=== PATIENT | female | born 1935 | race African-American/Black ===

== ENCOUNTER 2022-04-05 04:15 | Inpatient (IN) | payer MEDICARE, MEDICAID ==
[~2022-04-05] VITALS: Ht 162.6 cm; Wt 48.1 kg
[2022-04-05] MEDS ORDERED: MORPHINE SULFATE 2 MG/ML CPJ (NOT FOR IM USE) IV ONE (05:15)
[2022-04-05 06:46] LABS: CHLORIDE 104 mEq/L (98-107); HEMATOCRIT. 34.7 % (36.0-48.0); HEMOGLOBIN. 11.5 g/dL (12.0-16.0); MEAN CORPUSCULAR HEMOGLOBIN 30.4 pg (28.0-32.0); MEAN CORPUSCULAR VOLUME 91.6 fL (81.0-99.0); MEAN PLATELET VOLUME 7.1 fl (7.4-10.4); PLATELET 258 x1000/uL (130-400); RED BLOOD CELL COUNT 3.79 mill/uL (4.2-5.4); RED CELL DISTRIBUTION WIDTH 13.4 % (11.6-14.6)
[2022-04-05 07:02] LABS: CREATINE KINASE 89 IU/L (26-192)
[2022-04-05 08:06] LABS: PLATELET ESTIMATE NORMAL
[2022-04-05] MEDS ORDERED: ONDANSETRON HCL 4MG/2ML INJ IV PRN (15:45)
[2022-04-05] MEDS ORDERED: TRAMADOL 50MG TABLET PO PRN (15:45)
[2022-04-05] MEDS ORDERED: MAGNESIUM/ALUMINUM HYDROXIDE/SIMETHICONE 30ML UDC PO PRN (15:45)
[2022-04-05] MEDS ORDERED: GUAIFENESIN 200MG/10ML SUGAR FREE UDC PO PRN (15:45)
[2022-04-05] MEDS ORDERED: DOCUSATE SODIUM 100MG CAPSULE PO PRN (15:45)
[2022-04-05 16:00] VITALS: BP 142/62
[2022-04-05] MEDS ORDERED: NALOXONE HCL 0.4MG/ML VIAL IV PRN (16:15)
[2022-04-05] MEDS: ENOXAPARIN 30MG/0.3ML SYR SUBCUT SCH (18:37)
[2022-04-05 20:21] VITALS: BP 145/59
[2022-04-06] VITALS: BP 152/73
[2022-04-06] MEDS: ACETAMINOPHEN 325MG TABLET PO PRN (00:35)
[2022-04-06 04:00] VITALS: BP 132/69
[2022-04-06 08:00] VITALS: BP 152/73
[2022-04-06 08:45] LABS: BASOPHILS % 0.2 % (0.0-2.0); EOSINOPHILS % 0.2 % (0.0-5.0); HEMATOCRIT. 30.8 % (36.0-48.0); HEMOGLOBIN. 10.4 g/dL (12.0-16.0); LYMPHOCYTES % 7.1 % (20.0-50.0); MEAN CORPUSCULAR HEMOGLOBIN 30.5 pg (28.0-32.0); MEAN CORPUSCULAR VOLUME 90.7 fL (81.0-99.0); MEAN PLATELET VOLUME 7.5 fl (7.4-10.4); MONOCYTES % 9.4 % (2.0-8.0); NEUTROPHILS % 83.1 % (40.0-76.0); PLATELET 232 x1000/uL (130-400); RED BLOOD CELL COUNT 3.39 mill/uL (4.2-5.4)
[2022-04-06] MEDS: AMLODIPINE 10MG TABLET PO SCH (10:21)
[2022-04-06 12:00] VITALS: BP 158/71
[2022-04-06 16:00] VITALS: BP 123/52
[2022-04-06 16:13] LABS: CHLORIDE 104 mEq/L (98-107)
[2022-04-06 16:21] LABS: HDL CHOLESTEROL 76 mg/dL (40-59); LDL CHOLESTEROL 89 mg/dL (5-100)
[2022-04-06] MEDS: ENOXAPARIN 30MG/0.3ML SYR SUBCUT SCH (17:32)
[2022-04-06 20:00] VITALS: BP 120/76
[2022-04-07] VITALS (7 sets, daily range): BP systolic 101–129; BP diastolic 58–83
[2022-04-07] MEDS: AMLODIPINE 10MG TABLET PO SCH (08:27)
[2022-04-07] MEDS: ACETAMINOPHEN 325MG TABLET PO PRN (08:27)
[2022-04-07 08:38] LABS: CHLORIDE 101 mEq/L (98-107)
[2022-04-07 08:49] LABS: HDL CHOLESTEROL 73 mg/dL (40-59); LDL CHOLESTEROL 79 mg/dL (5-100)
[2022-04-07] MEDS: ENOXAPARIN 30MG/0.3ML SYR SUBCUT SCH (17:23)
[2022-04-07] MEDS: METOPROLOL TARTRATE 50MG TABLET PO SCH ×2 (21:00→23:21)
[2022-04-08] VITALS: BP 110/70
[2022-04-08 04:00] VITALS: BP 124/67
[2022-04-08 08:00] VITALS: BP 110/70
[2022-04-08] MEDS: METOPROLOL TARTRATE 50MG TABLET PO SCH ×2 (09:24→21:57)
[2022-04-08] MEDS: AMLODIPINE 10MG TABLET PO SCH (09:24)
[2022-04-08 12:00] VITALS: BP 112/58
[2022-04-08 16:00] VITALS: BP 108/48
[2022-04-08] MEDS: ENOXAPARIN 30MG/0.3ML SYR SUBCUT SCH (16:38)
[2022-04-08 20:00] VITALS: BP 145/64
[2022-04-09] VITALS: BP 107/56
[2022-04-09 04:00] VITALS: BP_SYST 103; BP_SYST 116; BP_DIAS 53; BP_DIAS 62
[2022-04-09 07:29] LABS: HEMATOCRIT 29.2 % (36.0-48.0); HEMOGLOBIN 9.8 g/dL (12.0-16.0); MEAN CORPUSCULAR HEMOGLOBIN 30.6 pg (28.0-32.0); MEAN CORPUSCULAR VOLUME 90.8 fL (81.0-99.0); PLATELET 328 x1000/uL (130-400); RED BLOOD CELL COUNT 3.22 mill/uL (4.2-5.4); RED CELL DISTRIBUTION WIDTH 12.7 % (11.6-14.6)
[2022-04-09 08:00] VITALS: BP 109/65
[2022-04-09] MEDS: METOPROLOL TARTRATE 50MG TABLET PO SCH ×2 (09:00→21:00)
[2022-04-09] MEDS: AMLODIPINE 10MG TABLET PO SCH (09:37)
[2022-04-09] MEDS ORDERED: KETOROLAC 30MG/ML VIAL ONE (10:33)
[2022-04-09] MEDS ORDERED: MORPHINE SULFATE/PF 1MG/ML 10ML AMP ONE (10:33)
[2022-04-09] MEDS ORDERED: EPINEPHRINE 1:1000 1 MG/ML AMP ONE (10:34)
[2022-04-09] MEDS ORDERED: VANCOMYCIN HCL 1 GM/VIAL ONE (10:36)
[2022-04-09] MEDS ORDERED: LIDOCAINE HCL 1%/EPI 1:200,000 30 ML VIAL ONE ×2 (10:36)
[2022-04-09 12:00] VITALS: BP 109/60
[2022-04-09] MEDS ORDERED: SUCCINYLCHOLINE CHLORIDE 200MG/10ML IV ONE (12:11)
[2022-04-09] MEDS ORDERED: PROPOFOL 200MG/20ML VIAL IV ONE (12:12)
[2022-04-09] MEDS ORDERED: PHENYLEPHRINE HCL 10 MG/ML 1ML (IV VIAL) IV ONE (12:12)
[2022-04-09] MEDS ORDERED: LIDOCAINE HCL 1% 10 MG/ML 10ML VIAL ONE (12:12)
[2022-04-09] MEDS ORDERED: FENTANYL CITRATE/PF 50MCG/ML 2ML VIAL ONE (12:12)
[2022-04-09] MEDS ORDERED: TRANEXAMIC ACID 1,000 MG in SODIUM CHLORIDE 0.9% 100 ML IV NR ×4 (13:30)
[2022-04-09] MEDS ORDERED: SKIN ADHESIVE 0.7 GM EA TOP ONE (14:11)
[2022-04-09] MEDS ORDERED: ONDANSETRON HCL 4MG/2ML INJ IV PRN (14:45)
[2022-04-09] MEDS ORDERED: HYDROMORPHONE HCL/PF 2MG/ML CPJ IV PRN (14:45)
[2022-04-09] MEDS: CEFAZOLIN 1000MG PREMIX 50 ML IV NR ×2 (15:30→18:19)
[2022-04-09 16:00] VITALS: BP 116/62
[2022-04-09 16:46] LABS: TOTAL IRON BINDING CAPACITY 192 ug/dL (250-450)
[2022-04-09 17:29] LABS: CHLORIDE 103 mEq/L (98-107)
[2022-04-09] MEDS: ENOXAPARIN 30MG/0.3ML SYR SUBCUT SCH (18:20)
[2022-04-09 20:00] VITALS: BP 97/50
[2022-04-10] VITALS: BP 102/59
[2022-04-10] MEDS: CEFAZOLIN 1000MG PREMIX 50 ML IV SCH ×3 (00:49→17:29)
[2022-04-10 04:00] VITALS: BP 105/55
[2022-04-10 07:19] LABS: BASOPHILS % 0.1 % (0.0-2.0); HEMATOCRIT. 26.7 % (36.0-48.0); HEMOGLOBIN. 8.9 g/dL (12.0-16.0); LYMPHOCYTES % 8.3 % (20.0-50.0); MEAN CORPUSCULAR HEMOGLOBIN 30.4 pg (28.0-32.0); MEAN CORPUSCULAR VOLUME 91.5 fL (81.0-99.0); MEAN PLATELET VOLUME 7.7 fl (7.4-10.4); MONOCYTES % 11.9 % (2.0-8.0); NEUTROPHILS % 79.7 % (40.0-76.0); PLATELET 390 x1000/uL (130-400); RED BLOOD CELL COUNT 2.92 mill/uL (4.2-5.4); RED CELL DISTRIBUTION WIDTH 13.2 % (11.6-14.6)
[2022-04-10 08:00] VITALS: BP 126/54
[2022-04-10] MEDS: METOPROLOL TARTRATE 50MG TABLET PO SCH ×2 (08:40→21:00)
[2022-04-10] MEDS: AMLODIPINE 10MG TABLET PO SCH (08:40)
[2022-04-10 12:00] VITALS: BP 99/46
[2022-04-10] MEDS: FERROUS SULFATE 325MG TABLET PO SCH ×2 (13:02→16:59)
[2022-04-10] MEDS ORDERED: SODIUM CHLORIDE 0.9% 500 ML IV NR (15:45)
[2022-04-10 16:00] VITALS: BP 95/41
[2022-04-10] MEDS: ENOXAPARIN 30MG/0.3ML SYR SUBCUT SCH (17:00)
[2022-04-10 20:00] VITALS: BP 109/54
[2022-04-11] VITALS: BP 104/44
[2022-04-11] MEDS: CEFAZOLIN 1000MG PREMIX 50 ML IV SCH (01:53)
[2022-04-11] MEDS: ACETAMINOPHEN 325MG TABLET PO PRN (01:58)
[2022-04-11 04:00] VITALS: BP 112/53
[2022-04-11 07:48] LABS: BASOPHILS % 0.2 % (0.0-2.0); EOSINOPHILS % 0.5 % (0.0-5.0); HEMATOCRIT. 22.4 % (36.0-48.0); HEMOGLOBIN. 7.7 g/dL (12.0-16.0); MEAN CORPUSCULAR HEMOGLOBIN 31.1 pg (28.0-32.0); MEAN CORPUSCULAR VOLUME 90.6 fL (81.0-99.0); MEAN PLATELET VOLUME 7.5 fl (7.4-10.4); MONOCYTES % 11.5 % (2.0-8.0); NEUTROPHILS % 71.8 % (40.0-76.0); PLATELET 380 x1000/uL (130-400); RED BLOOD CELL COUNT 2.48 mill/uL (4.2-5.4); RED CELL DISTRIBUTION WIDTH 13.2 % (11.6-14.6)
[2022-04-11 08:00] VITALS: BP 118/61
[2022-04-11] MEDS: AMLODIPINE 10MG TABLET PO SCH (10:21)
[2022-04-11] MEDS: FERROUS SULFATE 325MG TABLET PO SCH (10:21)
[2022-04-11] MEDS: METOPROLOL TARTRATE 50MG TABLET PO SCH ×2 (10:22→20:50)
[2022-04-11 12:00] VITALS: BP 118/48
[2022-04-11 16:00] VITALS: BP 101/43
[2022-04-11 20:00] VITALS: BP 102/55
[2022-04-12] VITALS: BP 108/56
[2022-04-12 03:39] LABS: CHLORIDE 106 mEq/L (98-107)
[2022-04-12 04:00] VITALS: BP 110/60
[2022-04-12 07:10] LABS: BASOPHILS % 0.4 % (0.0-2.0); EOSINOPHILS % 2.4 % (0.0-5.0); HEMATOCRIT. 25.1 % (36.0-48.0); HEMOGLOBIN. 8.4 g/dL (12.0-16.0); LYMPHOCYTES % 13.3 % (20.0-50.0); MEAN CORPUSCULAR HEMOGLOBIN 30.3 pg (28.0-32.0); MEAN CORPUSCULAR VOLUME 90.9 fL (81.0-99.0); MEAN PLATELET VOLUME 7.2 fl (7.4-10.4); NEUTROPHILS % 72.9 % (40.0-76.0); PLATELET 518 x1000/uL (130-400); RED BLOOD CELL COUNT 2.76 mill/uL (4.2-5.4); RED CELL DISTRIBUTION WIDTH 13.2 % (11.6-14.6)
[2022-04-12 08:00] VITALS: BP 101/48
[2022-04-12] MEDS: METOPROLOL TARTRATE 50MG TABLET PO SCH (09:00)
[2022-04-12] MEDS ORDERED: AMLODIPINE 5MG TABLET PO SCH (09:00)
[2022-04-12] MEDS: FERROUS SULFATE 325MG TABLET PO SCH ×3 (09:20→17:36)
[2022-04-12 12:00] VITALS: BP 106/89
[2022-04-12 16:04] LABS: CHLORIDE 105 mEq/L (98-107)
[2022-04-12 18:13] VITALS: BP 104/52
== END 2022-04-12 18:55 | DRG 522 ==
LOC: ER 04:24 → 7EST 06:40 → ENRESERV 14:29 → 6EST 04-11 00:03
PROVIDERS: ADMIT Hospitalist; ATTEND Hospitalist
PROC: 0SRR0JA Replacement of Right Hip Joint, Femoral Surface with Synthetic Substitute, Uncemented, Open Approach (ICD-10-PCS; principal; 2022-04-09)
DX: S72.011A Unspecified intracapsular fracture of right femur, initial encounter for closed fracture (principal); D62 Acute posthemorrhagic anemia; E78.00 Pure hypercholesterolemia, unspecified; I10 Essential (primary) hypertension; W18.39XA Other fall on same level, initial encounter; Z20.822 Contact with and (suspected) exposure to COVID-19; Z90.710 Acquired absence of both cervix and uterus; Y93.89 Activity, other specified; Y92.89 Other specified places as the place of occurrence of the external cause; Y99.8 Other external cause status
CPT/HCPCS: 36415; 71045; 72170; 72192; 73502; 73551; 80048; 80053; 80061; 82550; 82607; 83540; 83550; 83735; 83880; 84484; 85025; 85027; 85044; 87426; 93005; 93306; 93970; 97110; 97162; 97166; 97530; 97535; 99285; J0330; J0690; J1650; J1885; J2270; J2274; J2370; J2704; J3010; J3370; J3490; J7050; C1776

== ENCOUNTER 2022-04-12 19:00 | Inpatient (IN) | payer MEDICARE, MEDICAID ==
[~2022-04-12] VITALS: Ht 162.6 cm; Wt 48.1 kg
[2022-04-12 20:00] VITALS: BP 124/55
[2022-04-12] MEDS ORDERED: MAGNESIUM/ALUMINUM HYDROXIDE/SIMETHICONE 30ML UDC PO PRN (20:00)
[2022-04-12] MEDS ORDERED: GUAIFENESIN 200MG/10ML SUGAR FREE UDC PO PRN (20:00)
[2022-04-12] MEDS ORDERED: ONDANSETRON HCL 4MG/2ML INJ IV PRN (20:00)
[2022-04-12] MEDS: METOPROLOL TARTRATE 50MG TABLET PO SCH (21:48)
[2022-04-13 07:56] LABS: BASOPHILS % 0.8 % (0.0-2.0); EOSINOPHILS % 4.6 % (0.0-5.0); HEMATOCRIT. 23.7 % (36.0-48.0); HEMOGLOBIN. 8.1 g/dL (12.0-16.0); LYMPHOCYTES % 18.4 % (20.0-50.0); MEAN CORPUSCULAR HEMOGLOBIN 30.9 pg (28.0-32.0); MEAN CORPUSCULAR VOLUME 90.8 fL (81.0-99.0); MEAN PLATELET VOLUME 7.6 fl (7.4-10.4); MONOCYTES % 10.6 % (2.0-8.0); NEUTROPHILS % 65.6 % (40.0-76.0); PLATELET 529 x1000/uL (130-400); RED BLOOD CELL COUNT 2.62 mill/uL (4.2-5.4); RED CELL DISTRIBUTION WIDTH 13.2 % (11.6-14.6)
[2022-04-13 08:00] VITALS: BP 102/58
[2022-04-13] MEDS: METOPROLOL TARTRATE 50MG TABLET PO SCH ×2 (09:00→20:26)
[2022-04-13] MEDS: AMLODIPINE 5MG TABLET PO SCH (09:00)
[2022-04-13] MEDS: FERROUS SULFATE 325MG TABLET PO SCH ×2 (09:14→17:59)
[2022-04-13 10:38] LABS: CHLORIDE 107 mEq/L (98-107)
[2022-04-13] MEDS ORDERED: NA PHOS,M-B/NA PHOS,DI-BA ENEMA 118ML PR PRN (15:00)
[2022-04-13 19:43] VITALS: BP 116/54
[2022-04-14 08:00] VITALS: BP 125/71
[2022-04-14] MEDS: FERROUS SULFATE 325MG TABLET PO SCH ×2 (09:38→16:49)
[2022-04-14] MEDS: METOPROLOL TARTRATE 50MG TABLET PO SCH ×2 (09:39→20:17)
[2022-04-14] MEDS: AMLODIPINE 5MG TABLET PO SCH (09:39)
[2022-04-14] MEDS: BISACODYL 5MG TABLET PO PRN (13:21)
[2022-04-14] MEDS: DOCUSATE SODIUM 100MG CAPSULE PO PRN (13:22)
[2022-04-14] MEDS ORDERED: SENNOSIDES/DOCUSATE SOD 8.6/50MG TABLET PO PRN (13:30)
[2022-04-14] MEDS: LACTULOSE 20G/30ML UDC PO SCH ×2 (16:49→20:00)
[2022-04-14 20:17] VITALS: BP_SYST 109; BP_SYST 110; BP_DIAS 34; BP_DIAS 53
[2022-04-15 08:00] VITALS: BP 125/71
[2022-04-15] MEDS: AMLODIPINE 5MG TABLET PO SCH (08:59)
[2022-04-15] MEDS: METOPROLOL TARTRATE 50MG TABLET PO SCH ×2 (09:00→21:00)
[2022-04-15] MEDS: FERROUS SULFATE 325MG TABLET PO SCH ×2 (09:03→16:05)
[2022-04-15 20:00] VITALS: BP 102/60
[2022-04-16 06:30] LABS: BASOPHILS % 0.5 % (0.0-2.0); EOSINOPHILS % 1.6 % (0.0-5.0); HEMATOCRIT. 22.8 % (36.0-48.0); HEMOGLOBIN. 7.8 g/dL (12.0-16.0); LYMPHOCYTES % 12.6 % (20.0-50.0); MEAN CORPUSCULAR VOLUME 91.1 fL (81.0-99.0); MEAN PLATELET VOLUME 6.8 fl (7.4-10.4); MONOCYTES % 11.6 % (2.0-8.0); NEUTROPHILS % 73.7 % (40.0-76.0); PLATELET 634 x1000/uL (130-400); RED CELL DISTRIBUTION WIDTH 13.5 % (11.6-14.6)
[2022-04-16 06:52] LABS: CHLORIDE 107 mEq/L (98-107)
[2022-04-16 08:00] VITALS: BP 112/60
[2022-04-16] MEDS: AMLODIPINE 5MG TABLET PO SCH (09:16)
[2022-04-16] MEDS: METOPROLOL TARTRATE 50MG TABLET PO SCH ×2 (09:17→21:07)
[2022-04-16] MEDS: FERROUS SULFATE 325MG TABLET PO SCH ×2 (09:17→17:42)
[2022-04-16 20:00] VITALS: BP 111/49
[2022-04-17 08:00] VITALS: BP 96/46
[2022-04-17] MEDS: AMLODIPINE 5MG TABLET PO SCH (09:00)
[2022-04-17] MEDS: METOPROLOL TARTRATE 50MG TABLET PO SCH (09:00)
[2022-04-17] MEDS: FERROUS SULFATE 325MG TABLET PO SCH ×2 (09:18→17:15)
[2022-04-17 20:00] VITALS: BP 129/46
[2022-04-17] MEDS: METOPROLOL TARTRATE 25MG TABLET PO SCH (20:45)
[2022-04-18 08:00] VITALS: BP 107/48
[2022-04-18] MEDS: METOPROLOL TARTRATE 25MG TABLET PO SCH ×2 (09:00→21:00)
[2022-04-18] MEDS: AMLODIPINE 5MG TABLET PO SCH (09:00)
[2022-04-18] MEDS: FERROUS SULFATE 325MG TABLET PO SCH ×2 (09:40→16:27)
[2022-04-18 20:00] VITALS: BP 119/49
[2022-04-19] MEDS: BISACODYL 5MG TABLET PO PRN (05:40)
[2022-04-19 08:00] VITALS: BP 112/57
[2022-04-19] MEDS: FERROUS SULFATE 325MG TABLET PO SCH ×2 (10:22→17:03)
[2022-04-19] MEDS: AMLODIPINE 5MG TABLET PO SCH (10:23)
[2022-04-19] MEDS: METOPROLOL TARTRATE 25MG TABLET PO SCH ×2 (10:23→21:00)
[2022-04-19 20:00] VITALS: BP 109/58
[2022-04-20 08:00] VITALS: BP 105/54
[2022-04-20] MEDS: METOPROLOL TARTRATE 25MG TABLET PO SCH ×2 (09:00→20:46)
[2022-04-20] MEDS: AMLODIPINE 5MG TABLET PO SCH (09:00)
[2022-04-20] MEDS: FERROUS SULFATE 325MG TABLET PO SCH ×2 (09:49→20:45)
[2022-04-20 10:09] LABS: BASOPHILS % 0.4 % (0.0-2.0); EOSINOPHILS % 2.1 % (0.0-5.0); HEMATOCRIT. 23.9 % (36.0-48.0); HEMOGLOBIN. 7.9 g/dL (12.0-16.0); LYMPHOCYTES % 11.3 % (20.0-50.0); MEAN CORPUSCULAR HEMOGLOBIN 30.6 pg (28.0-32.0); MEAN CORPUSCULAR VOLUME 92.5 fL (81.0-99.0); MEAN PLATELET VOLUME 6.7 fl (7.4-10.4); NEUTROPHILS % 77.2 % (40.0-76.0); PLATELET 695 x1000/uL (130-400); RED BLOOD CELL COUNT 2.58 mill/uL (4.2-5.4); RED CELL DISTRIBUTION WIDTH 14.1 % (11.6-14.6)
[2022-04-20 11:08] LABS: CHLORIDE 103 mEq/L (98-107)
[2022-04-20 11:23] LABS: TOTAL IRON BINDING CAPACITY 242 ug/dL (250-450)
[2022-04-20 13:08] LABS: FOLIC ACID (FOLATE) SERUM 16.2 ng/mL (>5.38)
[2022-04-20 20:00] VITALS: BP 113/49
[2022-04-21 08:00] VITALS: BP 99/43
[2022-04-21] MEDS: FERROUS SULFATE 325MG TABLET PO SCH ×2 (08:46→16:46)
[2022-04-21] MEDS: ASCORBIC ACID 500 MG TABLET PO SCH (08:46)
[2022-04-21] MEDS: METOPROLOL TARTRATE 25MG TABLET PO SCH ×2 (08:52→21:00)
[2022-04-21] MEDS: AMLODIPINE 5MG TABLET PO SCH (08:53)
[2022-04-21 15:58] LABS: ETHANOL BLOOD < 10 mg/dL; HDL CHOLESTEROL 51 mg/dL (40-59); LDL CHOLESTEROL 74 mg/dL (5-100)
[2022-04-21 16:16] LABS: T4 FREE 1.11 ng/dL (0.76-1.46)
[2022-04-21 20:00] VITALS: BP 102/49
[2022-04-22 07:09] LABS: BASOPHILS % 0.4 % (0.0-2.0); EOSINOPHILS % 2.3 % (0.0-5.0); HEMATOCRIT. 25.6 % (36.0-48.0); HEMOGLOBIN. 8.4 g/dL (12.0-16.0); LYMPHOCYTES % 11.6 % (20.0-50.0); MEAN CORPUSCULAR HEMOGLOBIN 30.4 pg (28.0-32.0); MEAN CORPUSCULAR VOLUME 92.6 fL (81.0-99.0); MEAN PLATELET VOLUME 7.3 fl (7.4-10.4); MONOCYTES % 9.5 % (2.0-8.0); NEUTROPHILS % 76.2 % (40.0-76.0); PLATELET 672 x1000/uL (130-400); RED BLOOD CELL COUNT 2.76 mill/uL (4.2-5.4); RED CELL DISTRIBUTION WIDTH 14.1 % (11.6-14.6)
[2022-04-22 08:00] VITALS: BP 109/60
[2022-04-22] MEDS: AMLODIPINE 5MG TABLET PO SCH (08:44)
[2022-04-22] MEDS: ASCORBIC ACID 500 MG TABLET PO SCH (08:44)
[2022-04-22] MEDS: METOPROLOL TARTRATE 25MG TABLET PO SCH ×2 (08:44→21:28)
[2022-04-22] MEDS: FERROUS SULFATE 325MG TABLET PO SCH ×2 (08:44→16:36)
[2022-04-22 20:00] VITALS: BP 130/50
[2022-04-23 08:00] VITALS: BP 118/57
[2022-04-23] MEDS: METOPROLOL TARTRATE 25MG TABLET PO SCH ×2 (09:36→21:00)
[2022-04-23] MEDS: FERROUS SULFATE 325MG TABLET PO SCH ×2 (09:36→17:00)
[2022-04-23] MEDS: AMLODIPINE 5MG TABLET PO SCH (09:36)
[2022-04-23] MEDS: ASCORBIC ACID 500 MG TABLET PO SCH (09:36)
[2022-04-23] MEDS: ACETAMINOPHEN 325MG TABLET PO PRN (14:18)
[2022-04-23 17:06] LABS: 25-HYDROXY VITAMIN D3 39 ng/mL (.)
[2022-04-23 20:00] VITALS: BP 104/44
[2022-04-24] MEDS: METOPROLOL TARTRATE 25MG TABLET PO SCH ×2 (10:20→21:00)
[2022-04-24] MEDS: ASCORBIC ACID 500 MG TABLET PO SCH (10:20)
[2022-04-24] MEDS: FERROUS SULFATE 325MG TABLET PO SCH ×2 (10:21→18:11)
[2022-04-24] MEDS: AMLODIPINE 5MG TABLET PO SCH (10:21)
[2022-04-24] MEDS: DOCUSATE SODIUM 100MG CAPSULE PO PRN (10:26)
[2022-04-24 20:00] VITALS: BP 116/56
[2022-04-25 08:00] VITALS: BP 99/35
[2022-04-25] MEDS: ASCORBIC ACID 500 MG TABLET PO SCH (09:44)
[2022-04-25] MEDS: AMLODIPINE 5MG TABLET PO SCH (09:44)
[2022-04-25] MEDS: FERROUS SULFATE 325MG TABLET PO SCH (09:44)
[2022-04-25] MEDS: METOPROLOL TARTRATE 25MG TABLET PO SCH (09:44)
[2022-04-25] MEDS: ACETAMINOPHEN 325MG TABLET PO PRN (09:44)
[2022-04-25 11:03] VITALS: BP 100/45
== END 2022-04-25 12:41 | DRG 535 ==
PROVIDERS: ADMIT Psychiatry & Neurology Neurology; ATTEND Hospitalist
DX: S72.011A Unspecified intracapsular fracture of right femur, initial encounter for closed fracture (principal); E43 Unspecified severe protein-calorie malnutrition; G92.8 Other toxic encephalopathy; F03.93 Unspecified dementia, unspecified severity, with mood disturbance; F03.94 Unspecified dementia, unspecified severity, with anxiety; Z68.1 Body mass index [BMI] 19.9 or less, adult; E78.5 Hyperlipidemia, unspecified; I10 Essential (primary) hypertension; Z96.641 Presence of right artificial hip joint; K59.00 Constipation, unspecified; D50.9 Iron deficiency anemia, unspecified; E78.00 Pure hypercholesterolemia, unspecified; I95.9 Hypotension, unspecified; R26.89 Other abnormalities of gait and mobility; R20.0 Anesthesia of skin; W18.39XA Other fall on same level, initial encounter; Y93.89 Activity, other specified; Y92.89 Other specified places as the place of occurrence of the external cause; Z82.49 Family history of ischemic heart disease and other diseases of the circulatory system; Z87.81 Personal history of (healed) traumatic fracture; Z91.81 History of falling; Y99.8 Other external cause status
CPT/HCPCS: 36415; 70551; 80048; 80053; 80061; 80320; 82140; 82306; 82607; 82728; 82746; 83036; 83540; 83550; 84439; 84443; 84481; 85025; 87426; 92523; 92610; 97110; 97116; 97161; 97162; 97167; 97530; 97535; 97542; G0480